=== PATIENT | male | born 1950 | race Caucasian/White ===

== ENCOUNTER 2024-01-21 10:07 | Outpatient (CLI) | payer MEDICARE, SELFPAY ==
--- NOTE | 2024-01-21 10:11 | CT_ITS ---
WS: [id number] CT TEMPORAL BONES WITHOUT CONTRAST HISTORY: CHRONIC SEROUS OTITIS MEDIA,RIGHT EAR TECHNIQUE: Axial 1.25 mm imaging is performed through the temporal bones. High resolution 0.63 mm ref ormats were then submitted in axial, coronal and sagittal planes. DLP: 342.[address] scans at [facility] use at least one of these dose optimization techniques: automated e xposure control; mA and/or kV adjustment per patient size (includes targeted exams where dose is matc hed to clinical indication); or iterative reconstruction. COMPARISON: None available. RIGHT: Middle ear ossicles appear appropriate. There are a few very minimal soft tissue strands exten ding toward the anterior epitympanum. This is not masslike. There is no dense consolidation. There is no bone erosions. No cholesteatoma. The tympanic membrane appears appropriate. No erosion of the teg men tympanic. LEFT: Normal appearance to the inner ear ossicles. Normal scutum. No soft tissue masses. No erosions of the tegmen tympani is intact. Mastoid air cells are clear. No coalescence of mastoid air cells or sclerosis. Orbits and globes are negative. Visualized posterior fossa is negative. CT/CT temporal bone wo con* [id number] IMPRESSION: 1. Normal tympanic membrane's bilaterally. 2. Very minimal soft tissue stranding along the medial RIGHT inner ear ossicle s toward the epitympanum. This may be the residual of a prior infection. There is no mass or bone erosion. 3. Normal LEFT temporal bone.
== END 2024-01-21 10:08 | disposition home or self-care (01) ==
LOC: RAD 10:09
PROVIDERS: PCP Specialist; Visit Provider Specialist
DX: H65.21 Chronic serous otitis media, right ear (principal); H90.8 Mixed conductive and sensorineural hearing loss, unspecified
CPT/HCPCS: 70480